=== PATIENT | female | born 1985 | race Caucasian/White ===

== ENCOUNTER 2017-06-19 17:23 | Emergency (ER) | payer MEDICAID ==
[~2017-06-19] VITALS: Ht 149.9 cm; Wt 60.3 kg
[2017-06-19 20:53] VITALS: BP 106/73
[2017-06-19] MEDS ORDERED: TETANUS-DIPTH-ACEL PERTUSSIS 0.5ML SYRG IM ONE (21:15)
== END 2017-06-19 21:34 | disposition home or self-care (01) ==
LOC: ER 17:23
DX: S61.213A Laceration without foreign body of left middle finger without damage to nail, initial encounter (principal); W45.8XXA Other foreign body or object entering through skin, initial encounter; Y93.89 Activity, other specified; Y92.89 Other specified places as the place of occurrence of the external cause; Y99.8 Other external cause status
CPT/HCPCS: 12002; 90471; 90715